=== PATIENT | female | born 1990 | race Caucasian/White ===

== ENCOUNTER → 2019-01-02 | Outpatient (CLI) | payer OTHER | LOC: FIMAGING 10:23 | PROVIDERS: ATTEND Obstetrics & Gynecology | DX: Z34.82 Encounter for supervision of other normal pregnancy, second trimester (principal); Z82.79 Family history of other congenital malformations, deformations and chromosomal abnormalities; Z3A.23 23 weeks gestation of pregnancy ==

== ENCOUNTER 2019-01-23 21:13 | Emergency (ER) | payer OTHER ==
--- NOTE | 2019-01-23 21:28 | EDPHY ---
H & P Time Seen by Provider: 01/23/19 21:25 HPI/ROS: CHIEF COMPLAINT: Left leg swelling HISTORY OF PRESENT ILLNESS: 26 weeks presents with leg swelling concern for DVT. Started today, below the knee, a little bit tender. Not associated with skin changes or fever or chills or chest pain or shortness of breath. No trauma or injury. Little bit worse with standing on it and palpation. Mild to moderate. REVIEW OF SYSTEMS: Eye: no change in vision ENT: no sore throat Cardiac: No chest pain Pulmonary: No shortness of breath Abdomen: No abdominal symptoms Musculoskeletal: HPI Skin: no rash Neuro: no headache Constitutional: no fever : no urinary symptoms A comprehensive 10 point review of systems is otherwise negative aside from elements mentioned in the history of present illness. PAST MEDICAL HISTORY: 26 weeks Social history: OBGYN on-call tonight is Dr. Chang General Appearance: Alert and conversant, cooperative. Eyes: No scleral icterus. ENT, Mouth: Normal mucous membranes. Respiratory: Normal respiratory effort, breath sounds equal, lungs are clear to auscultation. Cardiovascular: Regular rate and rhythm. Gastrointestinal: Abdomen is soft and non tender. Neurological: Alert, face symmetric, normal motor and sensory in extremities. Skin: No redness warmth or other rash over the left lower leg. Musculoskeletal: No visible swelling left lower calf but is slightly tender posterior on the calf, normal range of motion left knee and foot. Normal motor sensory and vascular in the left foot. No bony tenderness there. Compartments soft. Psychiatric: Not agitated. Emergency Department course/MDM: Differential includes but not limited to compartment syndrome, muscular strain, DVT, arterial occlusion, peripheral edema . Plan for ultrasound discussed and consented. 2214: No DVT, discussed with patient. Smoking Status: Never smoked Constitutional: Initial Vital Signs Temperature (C) 37.0 C 01/23/19 21: Heart Rate 79 01/23/19 21: Respiratory Rate 16 01/23/19 21:19 Blood Pressure 122/76 H 01/23/19 21:19 O2 Sat (%) 98 01/23/19 21:19 O2 Delivery Mode Room Air Allergies/Adverse Reactions: No Known Allergies Allergy (Unverified 01/23/19 21:19) Home Medications: Medication Instructions Recorded NK [No Known Home Meds] 01/23/19 Medical Decision Making - Diagnostics Imaging Results: Imaging Impressions Extremity Venous Study 01/23/19 21:28 Impression: There is no sonographic evidence of deep or superficial vein thrombosis in the left lower extremity. Findings were discussed with GRACIELA KEMP MD at 22:09, on 01/23/2019. Departure - Departure Disposition: Home, Routine, Self-Care Clinical Impression: Leg edema, left Condition: Good Instructions: Leg Edema (ED) Additional Instructions: Ultrasound shows no evidence of DVT/blood clot. Referrals: Melva Duron MD [Primary Care Provider] - As per Instructions Denise Chang MD [Medical Doctor] - As per Instructions
[2019-01-23 22:21] VITALS: BP 124/82
== END 2019-01-23 22:21 | disposition home or self-care (01) ==
DX: O12.02 Gestational edema, second trimester (principal); Z3A.26 26 weeks gestation of pregnancy